=== PATIENT | male | born 1955 ===

== ENCOUNTER → 2024-05-24 08:07 | Outpatient (REF) | payer MEDICARE, SELFPAY | LOC: MRI 08:07 | PROVIDERS: ATTENDING PHYSICIAN Psychiatry & Neurology Neurology; FAMILY PHYSICIAN Nurse Practitioner Primary Care; REFERRING PHYSICIAN Neurological Surgery | DX: R41.3 Other amnesia (principal); G91.2 (Idiopathic) normal pressure hydrocephalus; F03.A0 Unspecified dementia, mild, without behavioral disturbance, psychotic disturbance, mood disturbance, and anxiety | CPT/HCPCS: 70250; 70551; 76014; 76015 ==